=== PATIENT | male | born 1990 | race Caucasian/White ===

== ENCOUNTER 2017-05-02 19:56 | Emergency (ER) | payer OTHER ==
[~2017-05-02] VITALS: Ht 190.5 cm; Wt 77.1 kg
[~2017-05-02 19:56] MED LIST: ACETAMINOPHEN-O1 TAB PO; AMOXICILLIN500 MG PO; BACTRIM DS 8001 TA1 PO; DARVOCET N 1001 TAB PO; FLOMAX0.4 MG PO; HYDROCODONE BIT1 T11 PO; Motrin,Rufen800 MG PO; NKHM; PERCOCET 325 MG1 TA2 PO; SEPTRA DS 800 M1 TAB PO; TOBRADEX 0.1%-0.5 ML OPH; ULTRAM50 MG PO; VICODIN 500 MG-1 TAB PO; ZANTAC 150150 MG PO; ZOFRAN ODT4 MG SL; ZOFRAN4 MG PO; Zofran4 MG PO
[2017-05-02] MEDS ORDERED: CLINDAMYCIN HC300 MG PO (20:47)
== END 2017-05-02 20:51 | disposition home or self-care (01) ==
LOC: ED 19:56
DX: K02.9 Dental caries, unspecified (principal); K08.89 Other specified disorders of teeth and supporting structures; F17.200 Nicotine dependence, unspecified, uncomplicated; Z87.442 Personal history of urinary calculi; Z79.899 Other long term (current) drug therapy

== ENCOUNTER 2018-12-22 09:58 | Emergency (ER) | payer OTHER ==
[~2018-12-22] VITALS: Ht 190.5 cm; Wt 72.6 kg
[~2018-12-22 09:58] MED LIST changes: +CLINDAMYCIN HC300 MG PO
[2018-12-22] MEDS ORDERED: Motrin,Rufen800 MG PO (12:16)
[2018-12-22] MEDS ORDERED: PHENERGAN25 M3 PO (12:16)
== END 2018-12-22 12:26 | disposition home or self-care (01) ==
LOC: ED 09:58
DX: S06.0X1A Concussion with loss of consciousness of 30 minutes or less, initial encounter (principal); S20.229A Contusion of unspecified back wall of thorax, initial encounter; S00.81XA Abrasion of other part of head, initial encounter; R55 Syncope and collapse; W18.39XA Other fall on same level, initial encounter; Y93.89 Activity, other specified; Y92.89 Other specified places as the place of occurrence of the external cause; Y99.8 Other external cause status

== ENCOUNTER 2019-01-24 07:11 | Emergency (ER) | payer OTHER ==
[~2019-01-24] VITALS: Ht 177.8 cm; Wt 72.6 kg
[~2019-01-24 07:11] MED LIST changes: +PHENERGAN25 M3 PO
[2019-01-24] MEDS ORDERED: ZOFRAN4 MG PO (07:37)
== END 2019-01-24 07:55 | disposition home or self-care (01) ==
LOC: ED 07:11
DX: R11.0 Nausea (principal); Z87.442 Personal history of urinary calculi

== ENCOUNTER 2020-08-24 13:48 | Emergency (ER) | payer OTHER ==
[~2020-08-24] VITALS: Wt 77.1 kg
[2020-08-24] MEDS ORDERED: HYDROCODONE-AC1 EAC1 PO (15:36)
== END 2020-08-24 16:40 | disposition home or self-care (01) ==
LOC: ED 13:48
DX: S62.330A Displaced fracture of neck of second metacarpal bone, right hand, initial encounter for closed fracture (principal); W23.0XXA Caught, crushed, jammed, or pinched between moving objects, initial encounter; Y93.89 Activity, other specified; Y92.89 Other specified places as the place of occurrence of the external cause; Y99.8 Other external cause status

== ENCOUNTER 2023-04-18 10:57 | Emergency (ER) | payer MEDICAID ==
[~2023-04-18] VITALS: Ht 190.5 cm; Wt 68.0 kg
[~2023-04-18 10:57] MED LIST changes: +HYDROCODONE-AC1 EAC1 PO
== END 2023-04-18 11:38 | disposition home or self-care (01) ==
LOC: ED 10:57
DX: J06.9 Acute upper respiratory infection, unspecified (principal); F90.9 Attention-deficit hyperactivity disorder, unspecified type; Z87.442 Personal history of urinary calculi; F17.290 Nicotine dependence, other tobacco product, uncomplicated

== ENCOUNTER 2023-12-02 16:17 | Emergency (ER) | payer MEDICAID ==
[~2023-12-02] VITALS: Ht 187.9 cm; Wt 77.1 kg
[2023-12-02] MEDS ORDERED: SODIUM CHLORIDE 0.9% 1,000 ML IV ONE (16:30)
[2023-12-02] MEDS ORDERED: Ketorolac Tromethamine 30 MG/ML VIAL IV ONE (16:30)
[2023-12-02] MEDS ORDERED: Ondansetron Hydrochloride 4 MG/2 ML VIAL IV ONE (16:30)
[2023-12-02 16:52] LABS: BASO % 0.3 % (0.0-1.0); EOS # 0.2 10*3/uL (0.0-0.4); HEMATOCRIT 42.9 % (42.0-52.0); LYMPH # 3.4 10*3/uL (1.3-4.4); LYMPH % 29.7 % (27.0-41.0); MEAN CELL VOLUME 94.3 fl (80.0-94.0); MEAN CORPUSCULAR HGB 32.7 pg (27.0-31.0); MEAN CORPUSCULAR HGB CONC 34.7 g/dl (33.0-37.0); MEAN PLATELET VOLUME 8.9 fl (9.6-12.3); MONO # 0.5 10*3/uL (0.1-1.0); MONO % 4.7 % (3.0-9.0); NEUT # 7.3 10*3/uL (2.3-7.9); PLATELET COUNT AUTOMATED 237 10*3/uL (130-400); RED BLOOD COUNT 4.55 10*6/uL (4.50-5.90); WHITE BLOOD COUNT 11.6 10*3/uL (4.8-10.8)
[2023-12-02 17:30] LABS: BILIRUBIN Negative (Negative); BLOOD 2+ (Negative); CLARITY Clear (Clear); COLOR Yellow (Yellow); GLUCOSE Negative (Negative); KETONE 2+ (Negative); LEUKO ESTERASE Negative (Negative); NITRITE Negative (Negative); SPECIFIC GRAVITY 1.025 (1.001-1.030)
[2023-12-02 17:32] LABS: ALKALINE PHOSPHATASE 63 U/L (46-116); BUN 9 mg/dl (9-23); CHLORIDE 104 mmol/L (98-107); LIPASE 35 U/L (12-53); POTASSIUM 3.9 mmol/L (3.4-5.1); SGPT/ALT 17 U/L (5-49); TOTAL PROTEIN 7.3 gm/dL (6.0-8.0)
[2023-12-02 17:37] LABS: BACTERIA TRACE; CALCIUM OXALATE CRYSTALS Trace; MUCOUS 2+
[2023-12-02] MEDS ORDERED: FLOMAX0.4 MG PO (19:04)
[2023-12-02] MEDS ORDERED: KETOROLAC10 MG PO (19:04)
[2023-12-03] MEDS ORDERED: KETOROLAC10 MG PO (13:13)
== END 2023-12-02 19:18 | disposition home or self-care (01) ==
LOC: ED 16:17
PROVIDERS: Physician Assistant Medical
DX: N20.1 Calculus of ureter (principal); F90.9 Attention-deficit hyperactivity disorder, unspecified type; F11.10 Opioid abuse, uncomplicated

== ENCOUNTER 2023-12-16 00:34 | Emergency (ER) | payer MEDICAID ==
[~2023-12-16] VITALS: Ht 190.5 cm; Wt 72.6 kg
[~2023-12-16 00:34] MED LIST changes: +KETOROLAC10 MG PO
[2023-12-16] MEDS ORDERED: SUBUTEX (00:46)
[2023-12-16 01:36] LABS: BASO % 0.4 % (0.0-1.0); EOS # 0.2 10*3/uL (0.0-0.4); EOS % 2.5 % (1.0-4.0); HEMATOCRIT 41.9 % (42.0-52.0); LYMPH # 3.3 10*3/uL (1.3-4.4); MEAN CELL VOLUME 96.1 fl (80.0-94.0); MEAN CORPUSCULAR HGB CONC 34.4 g/dl (33.0-37.0); MEAN PLATELET VOLUME 8.4 fl (9.6-12.3); MONO # 0.6 10*3/uL (0.1-1.0); NEUT # 5.1 10*3/uL (2.3-7.9); PLATELET COUNT AUTOMATED 239 10*3/uL (130-400); RED BLOOD COUNT 4.36 10*6/uL (4.50-5.90); RED CELL DISTRI WIDTH 13.1 % (0-14.5); WHITE BLOOD COUNT 9.2 10*3/uL (4.8-10.8)
[2023-12-16 01:49] LABS: BUN 13 mg/dl (9-23); CHLORIDE 102 mmol/L (98-107); POTASSIUM 4.1 mmol/L (3.4-5.1)
[2023-12-16 01:59] LABS: BILIRUBIN Negative (Negative); BLOOD 2+ (Negative); CLARITY Clear (Clear); COLOR Yellow (Yellow); GLUCOSE Negative (Negative); KETONE Trace (Negative); LEUKO ESTERASE 1+ (Negative); NITRITE Negative (Negative); SPECIFIC GRAVITY 1.015 (1.001-1.030)
[2023-12-16 02:13] LABS: BACTERIA 1+; RBC 31-40 rbc/hpf (0-2); WBC 21-30 wbc/hpf (0-5)
[2023-12-16] MEDS ORDERED: KETOROLAC10 MG PO (14:35)
[2023-12-16] MEDS ORDERED: CIPRO500 MG PO (14:39)
== END 2023-12-16 02:04 | disposition left against medical advice (07) ==
LOC: ED 00:34
PROVIDERS: Emergency Medicine
DX: R10.9 Unspecified abdominal pain (principal); R11.0 Nausea; F90.9 Attention-deficit hyperactivity disorder, unspecified type; Z53.29 Procedure and treatment not carried out because of patient's decision for other reasons; Z87.442 Personal history of urinary calculi

== ENCOUNTER 2023-12-16 14:16 | Emergency (ER) | payer MEDICAID ==
[~2023-12-16] VITALS: Ht 190.5 cm; Wt 72.6 kg
[~2023-12-16 14:16] MED LIST changes: +SUBUTEX
[2023-12-16] MEDS ORDERED: Ketorolac Tromethamine 60 MG/2 ML VIAL IM ONE (14:35)
[2023-12-16] MEDS ORDERED: KETOROLAC10 MG PO (14:35)
[2023-12-16] MEDS ORDERED: CIPRO500 MG PO (14:39)
== END 2023-12-16 14:54 | disposition home or self-care (01) ==
LOC: ED 14:16
DX: N20.0 Calculus of kidney (principal); N39.0 Urinary tract infection, site not specified; F90.9 Attention-deficit hyperactivity disorder, unspecified type; Z53.29 Procedure and treatment not carried out because of patient's decision for other reasons

== ENCOUNTER 2023-12-16 21:30 | Emergency (ER) | payer MEDICAID ==
[~2023-12-16] VITALS: Ht 190.5 cm; Wt 68.0 kg
[~2023-12-16 21:30] MED LIST changes: +CIPRO500 MG PO
[2023-12-16] MEDS ORDERED: Ketorolac Tromethamine 30 MG/ML VIAL IM ONE (21:55)
== END 2023-12-16 22:12 | disposition left against medical advice (07) ==
LOC: ED 21:30
DX: N20.1 Calculus of ureter (principal); F90.9 Attention-deficit hyperactivity disorder, unspecified type; Z53.29 Procedure and treatment not carried out because of patient's decision for other reasons

== ENCOUNTER 2025-01-14 22:25 | Emergency (ER) | payer MEDICAID ==
[~2025-01-14] VITALS: Ht 190.5 cm; Wt 70.8 kg
[2025-01-15] MEDS ORDERED: AMOXICILLIN500 M2 PO (00:36)
[2025-01-15] MEDS ORDERED: MELOXICAM7.5 MG PO (00:36)
[2025-01-15] MEDS ORDERED: AMOXICILLIN 500 MG CAP PO ONE (00:40)
[2025-01-15] MEDS ORDERED: Meloxicam 7.5 MG TAB PO ONE (00:40)
== END 2025-01-15 01:05 | disposition home or self-care (01) ==
LOC: ED 22:25
DX: K08.89 Other specified disorders of teeth and supporting structures (principal); Z79.899 Other long term (current) drug therapy

== ENCOUNTER 2025-02-05 11:55 | Emergency (ER) | payer MEDICAID ==
[~2025-02-05] VITALS: Ht 190.5 cm; Wt 73.9 kg
[~2025-02-05 11:55] MED LIST changes: +AMOXICILLIN500 M2 PO; +MELOXICAM7.5 MG PO
[2025-02-05] MEDS ORDERED: Amoxicillin/Clavulanate Pota 875 MG TAB PO ONE (12:20)
[2025-02-05] MEDS ORDERED: AMOX-CLAV 875-1 EACH PO (12:25)
== END 2025-02-05 12:44 | disposition home or self-care (01) ==
LOC: ED 11:55
DX: K04.7 Periapical abscess without sinus (principal); Z79.899 Other long term (current) drug therapy